=== PATIENT | male | born 1985 | race Hispanic/Latino ===

== ENCOUNTER 2021-10-06 15:17 | Emergency (ER) | payer OTHER ==
[~2021-10-06] VITALS: Ht 157.5 cm; Wt 65.8 kg
[2021-10-06] MEDS ORDERED: NAPROSYN500 MG PO (16:41)
== END 2021-10-06 16:57 | disposition home or self-care (01) ==
LOC: FSED 15:48
DX: S00.83XA Contusion of other part of head, initial encounter (principal); S13.9XXA Sprain of joints and ligaments of unspecified parts of neck, initial encounter; W01.0XXA Fall on same level from slipping, tripping and stumbling without subsequent striking against object, initial encounter; Y93.89 Activity, other specified
CPT/HCPCS: 70450; 72125; 99283